=== PATIENT | female | born 1985 | race American Indian/Alaskan Native ===

== ENCOUNTER 2018-04-13 14:54 | Emergency (ER) | payer MEDICAID, MEDICARE ==
[~2018-04-13] VITALS: Ht 152.4 cm; Wt 76.4 kg
[~2018-04-13 14:54] MED LIST: BACI3.5O2 RIGHTEYE; DOCU-28 PO
[2018-04-13 15:49] VITALS: BP 113/60
== END 2018-04-13 16:22 | disposition home or self-care (01) ==
LOC: ER 14:54
DX: R06.00 Dyspnea, unspecified (principal); R53.1 Weakness; R06.02 Shortness of breath
CPT/HCPCS: 71046; 93005; 99284

== ENCOUNTER 2019-01-02 11:11 | Emergency (ER) | payer MEDICAID ==
[~2019-01-02] VITALS: Ht 152.4 cm; Wt 68.2 kg
[2019-01-02] MEDS ORDERED: morphine 4 MG/ML inj SYRINge IV PRN (11:20)
[2019-01-02] MEDS ORDERED: normal saline 1000ML IV soln IVB ONE (11:20)
[2019-01-02] MEDS ORDERED: ondansetron/PF 4mg/2ml inj IV ONE (11:20)
[2019-01-02 11:27] VITALS: BP 148/86
[2019-01-02 11:40] LABS: BASOPHILS # (AUTO) 0.1 X10'3 (0-0.2); EOSINOPHILS # (AUTO) 0.3 X10'3 (0-0.9); EOSINOPHILS % (AUTO) 2.4 % (0-6); HEMATOCRIT 43.5 % (35.0-45.0); HEMOGLOBIN 14.5 g/dl (12.0-16.0); LYMPHOCYTES # (AUTO) 4.2 X10'3 (1.1-4.8); LYMPHOCYTES % (AUTO) 35.8 % (21-51); MEAN CORPUSCULAR HEMOGLOBIN 29.7 PG (27.0-31.0); MEAN CORPUSCULAR HGB CONC 33.4 g/dL (33.0-36.5); MEAN PLATELET VOLUME 7.6 FL (7.4-10.4); MONOCYTES # (AUTO) 0.8 X10'3 (0-0.9); MONOCYTES % (AUTO) 6.5 % (2-12); NEUTROPHILS # (AUTO) 6.4 X10'3 (1.8-7.7); NEUTROPHILS % (AUTO) 54.3 % (42-75); PLATELET COUNT 328 X10'3 (140-440); RED BLOOD COUNT 4.89 X10'6 (4.20-5.60); RED CELL DISTRIBUTION WIDTH 14.1 % (11.5-14.5); WHITE BLOOD COUNT 11.7 X10'3 (4.5-11.0)
[2019-01-02 11:54] LABS: ALANINE AMINOTRANSFERASE 20 U/L (12-78); ALBUMIN 4.2 G/DL (3.4-5.0); ALBUMIN/GLOBULIN RATIO 1.1 (1.1-1.5); ALKALINE PHOSPHATASE 61 IU/L (46-116); ANION GAP 10 (8-16); ASPARTATE AMINO TRANSFERASE 16 U/L (10-37); BILIRUBIN,TOTAL 0.4 MG/DL (0.1-1.0); BLOOD UREA NITROGEN 6 MG/DL (7-18); BUN/CREATININE RATIO 8.6 (6.6-38.0); CALCIUM 9.2 MG/DL (8.5-10.1); CHLORIDE 104 MMOL/L (99-107); GLUCOSE 80 MG/DL (70-104); POTASSIUM 3.6 MMOL/L (3.5-5.1); SODIUM 137 MMOL/L (135-145); TOTAL CARBON DIOXIDE 23.1 MMOL/L (24-32); eGFR > 90 ML/MIN
[2019-01-02 11:57] LABS: LIPASE 149 U/L (73-393); TROPONIN I < 0.04 NG/ML (0.0-0.05)
[2019-01-02] MEDS ORDERED: ketorolac trometh. 30mg/ml inj. IV ONE (12:15)
[2019-01-02 12:28] LABS: URINE HCG NEGATIVE (NEG)
[2019-01-02 12:37] LABS: CLARITY,URINE CLEAR (Clear); COLOR,URINE STRAW (Yellow); GLUCOSE, URINE NEGATIVE (Neg); KETONES,URINE NEGATIVE (Neg); LEUKOCYTE ESTERASE ,URINE NEGATIVE (Neg); NITRITES, URINE NEGATIVE (Neg); OCCULT BLOOD,URINE NEGATIVE (Neg); PH,URINE 6.5 (4.8-8.0); PROTEIN,URINE NEGATIVE (Neg); UA COLLECTION TYPE CLN CATCH MIDSTREAM; UROBILINOGEN,URINE 0.2 E.U/dL (0.2-1.0)
[2019-01-02] MEDS ORDERED: LOPE2CAP PO (13:10)
[2019-01-02] MEDS ORDERED: HYDR-3965 PO (13:10)
[2019-01-02] MEDS ORDERED: ONDA8TAB6 PO (13:10)
== END 2019-01-02 13:28 | disposition home or self-care (01) ==
LOC: ER 11:11
DX: K80.80 Other cholelithiasis without obstruction (principal); R19.7 Diarrhea, unspecified; R11.2 Nausea with vomiting, unspecified
CPT/HCPCS: 36415; 71045; 76700; 80053; 81003; 81025; 83690; 84484; 85025; 93005; 96374; 96375; 99284; J1885; J2270; J2405; J7030; 96361

== ENCOUNTER 2019-01-11 12:53 | Day surgery (SDC) | payer MEDICAID ==
[~2019-01-11] VITALS: Ht 152.4 cm; Wt 67.6 kg
[2019-01-11] VITALS (10 sets, daily range): BP systolic 83–115; BP diastolic 43–71
[~2019-01-11 12:53] MED LIST changes: +HYDR-3965 PO; +LOPE2CAP PO; +ONDA8TAB6 PO
[2019-01-11] MEDS ORDERED: famotidine 20mg tablet PO ONE (13:20)
[2019-01-11] MEDS ORDERED: cefazolin/dext.iso 2gm/100 ML IV ONE (13:20)
[2019-01-11] MEDS ORDERED: ringers solution, lacted 1,000 ML IV SCH ×2 (13:21→15:36)
[2019-01-11] MEDS ORDERED: ONDA8TAB12 PO (13:59)
[2019-01-11] MEDS ORDERED: ceFAZolin 1000mg inj ONE (14:02)
[2019-01-11] MEDS ORDERED: BUPIVAcaine/PF 2.5mg/ml (0.25%) 10ml vial ONE (14:03)
[2019-01-11] MEDS ORDERED: METO25TA6 PO (14:11)
[2019-01-11] MEDS ORDERED: FLUT1AER4 INH (14:11)
[2019-01-11] MEDS ORDERED: SERT50TA10 PO (14:11)
[2019-01-11] MEDS ORDERED: MONT10TA24 PO (14:11)
[2019-01-11] MEDS ORDERED: PRAZ2CAP2 PO (14:11)
[2019-01-11] MEDS ORDERED: ALBU18HF2 INH (14:11)
[2019-01-11] MEDS ORDERED: CETI10TA14 PO (14:11)
[2019-01-11] MEDS ORDERED: albuterol 2.5 MG/3 ML nebule ONE (15:00)
[2019-01-11] MEDS ORDERED: albuterol 2.5 MG/3 ML nebule NEB ONE (15:05)
[2019-01-11] MEDS ORDERED: meperidine/PF 25mg/ml syringe IV PRN ×2 (15:40)
[2019-01-11] MEDS ORDERED: ondansetron/PF 4mg/2ml inj IV PRN (15:40)
[2019-01-11] MEDS ORDERED: proCHLORperazine 10 MG/2 ml inj IV PRN (15:40)
[2019-01-11] MEDS ORDERED: morphine 4 MG/ML inj SYRINge IV PRN ×2 (15:40)
[2019-01-11] MEDS ORDERED: rocuronium 10mg/ml inj IV ONE (16:17)
[2019-01-11] MEDS ORDERED: sevoflurane 250ml liquid IH ONE (16:17)
[2019-01-11] MEDS ORDERED: midazolam 2 mg/2 ml injection ONE (16:20)
[2019-01-11] MEDS ORDERED: fentaNYL/PF 50MCG/1 ML 2ML syringe ONE (16:20)
[2019-01-11] MEDS ORDERED: dexamethasone sod phosphate 4mg/ml inj. ONE (16:59)
[2019-01-11] MEDS ORDERED: ondansetron/PF 4mg/2ml inj ONE (16:59)
[2019-01-11] MEDS ORDERED: LIDOcaine 2% (20mg/ml) 5ml vial ONE (17:00)
[2019-01-11] MEDS ORDERED: ketorolac trometh. 30mg/ml inj. ONE (17:00)
[2019-01-11] MEDS ORDERED: propofol inj 20 ML IV ONE (17:00)
[2019-01-11] MEDS ORDERED: glycopyrrolate 0.2mg/ml inj ONE (17:07)
[2019-01-11] MEDS ORDERED: neostigmine methylsulfate 1 MG/ML 10ml vial ONE (17:07)
--- NOTE | 2019-01-11 17:20 | NUR ---
Received from OR via [facility], accompanied by Anesthesiologist LAMBERT and report given by Anesthesiolgist. PATIENT WITH ABDOMINAL LAP SITES THAT ARE CDI. MEDICATED FOR PAIN SHORTLY AFTER ARRIVAL. VSS 20G PIV IN LEFT UE Addendum: 01/11/19 at 1743 by Kyle Mario RN, RN Amended: Links added.
[2019-01-11] MEDS: meperidine/PF 25mg/ml syringe IV PRN ×2 (17:48→18:21)
--- NOTE | 2019-01-11 18:40 | NUR ---
ALL DC CRITERIA HAS BEEN MET. IV TAKEN OUT WITHOUT COMPLICATIONS. ALL INSTRUCTIONS COVERED AND ALL QUESTIONS ANSWERED. DRESSINGS CDI. OUT VIA WHEELCHAIR TO PERSONAL VEHICLE WHERE PATIENT WAS SECURED IN AND DRIVEN HOME BY FAMILY. Addendum: 01/11/19 at 1842 by Kyle Mario RN, RN Amended: Links added.
== END 2019-01-11 18:40 | disposition home or self-care (01) ==
LOC: PAS 12:53
PROVIDERS: ATTEND Surgery
DX: K81.9 Cholecystitis, unspecified (principal); F17.210 Nicotine dependence, cigarettes, uncomplicated; M19.90 Unspecified osteoarthritis, unspecified site; F41.9 Anxiety disorder, unspecified; J45.909 Unspecified asthma, uncomplicated; Z80.0 Family history of malignant neoplasm of digestive organs; Z98.890 Other specified postprocedural states; Z79.899 Other long term (current) drug therapy; Z80.8 Family history of malignant neoplasm of other organs or systems
CPT/HCPCS: 47562; 82948; 94640; 94760; J0690; J1100; J1885; J2001; J2175; J2250; J2405; J2704; J2710; J3010; J3490; J7030; J7120; A7000

== ENCOUNTER 2019-04-14 11:35 | Emergency (ER) | payer MEDICAID ==
[~2019-04-14] VITALS: Ht 152.4 cm; Wt 67.0 kg
[~2019-04-14 11:35] MED LIST changes: +ALBU18HF2 INH; -BACI3.5O2 RIGHTEYE; +CETI10TA14 PO; +FLUT1AER4 INH; -HYDR-3965 PO; +METO25TA6 PO; +MONT10TA24 PO; +PRAZ2CAP2 PO; +SERT50TA10 PO
[2019-04-14] MEDS ORDERED: morphine 4 MG/ML inj SYRINge IV ONE (13:50)
[2019-04-14] MEDS ORDERED: probenecid 500mg tablet PO ONE (13:50)
[2019-04-14] MEDS ORDERED: ondansetron/PF 4mg/2ml inj IV ONE (13:50)
[2019-04-14] MEDS ORDERED: LORazepam 2 mg/ml vial IV ONE (13:50)
[2019-04-14] MEDS ORDERED: AMOX-580 PO (13:59)
[2019-04-14] MEDS ORDERED: ampicillin/sulbac 3gm/NS 100ml 100 ML IV SCH (14:00)
[2019-04-14 16:50] VITALS: BP 121/46
[2019-04-15] MEDS ORDERED: ONDA4TAB6 PO (14:33)
== END 2019-04-14 16:53 | disposition home or self-care (01) ==
LOC: ER 11:35
DX: S61.251A Open bite of left index finger without damage to nail, initial encounter (principal); Z79.899 Other long term (current) drug therapy; W55.01XA Bitten by cat, initial encounter; Y93.89 Activity, other specified; Y92.89 Other specified places as the place of occurrence of the external cause; Y99.9 Unspecified external cause status
CPT/HCPCS: 96365; 96375; 99283; J2060; J2270; J2405; J0295

== ENCOUNTER 2019-04-15 13:58 | Emergency (ER) | payer MEDICAID ==
[~2019-04-15] VITALS: Ht 152.4 cm; Wt 67.3 kg
[~2019-04-15 13:58] MED LIST changes: +AMOX-580 PO
[2019-04-15] MEDS ORDERED: ONDA4TAB6 PO (14:33)
[2019-04-15 14:47] VITALS: BP 106/54
== END 2019-04-15 14:48 | disposition home or self-care (01) ==
LOC: ER 13:59
DX: L03.012 Cellulitis of left finger (principal); Z79.899 Other long term (current) drug therapy
CPT/HCPCS: 99283

== ENCOUNTER 2022-10-06 08:18 | Day surgery (SDC) | payer MEDICARE, MEDICAID ==
[~2022-10-06] VITALS: Ht 356.7 cm; Wt 80.5 kg
[~2022-10-06 08:18] MED LIST changes: -AMOX-580 PO; +LOP25T PO; -METO25TA6 PO; +MONT-40 PO; -MONT10TA24 PO; +ONDA4TAB6 PO; +SERT-433 PO; -SERT50TA10 PO
[2022-10-06 08:30] VITALS: BP 118/70
[2022-10-06] MEDS ORDERED: diphenhydrAMINE 50 mg/ml inj ONE (08:38)
[2022-10-06] MEDS ORDERED: fentaNYL/PF 50MCG/1 ML 2ML syringe ONE (08:38)
[2022-10-06] MEDS ORDERED: LIDOcaine Viscous 15ml cup ONE (08:38)
[2022-10-06] MEDS ORDERED: MIDAZolam 1 MG/ML 5ML VIAL ONE (08:38)
[2022-10-06] MEDS ORDERED: HYDR-3972 PO (09:00)
[2022-10-06 10:10] VITALS: BP 112/73
[2022-10-06 10:20] VITALS: BP 109/55
[2022-10-06 10:30] VITALS: BP 103/69
== END 2022-10-06 10:55 | disposition home or self-care (01) ==
LOC: GI LAB 08:18
PROVIDERS: ATTEND Internal Medicine Gastroenterology
DX: R10.33 Periumbilical pain (principal); R10.13 Epigastric pain; K31.89 Other diseases of stomach and duodenum; K21.9 Gastro-esophageal reflux disease without esophagitis; F17.210 Nicotine dependence, cigarettes, uncomplicated; J45.909 Unspecified asthma, uncomplicated; Z79.899 Other long term (current) drug therapy
CPT/HCPCS: 43239; 88305; 88313; 88342; G0500; J2250; J3010; J7030; Z7512; 99152; A4620; J1200

== ENCOUNTER 2024-05-02 08:24 | Emergency (ER) | payer MEDICARE, MEDICAID ==
[~2024-05-02] VITALS: Ht 162.6 cm; Wt 79.0 kg
[~2024-05-02 08:24] MED LIST changes: -FLUT1AER4 INH; +HYDR-3972 PO; -ONDA8TAB6 PO
[2024-05-02 08:25] VITALS: BP 136/56; PULSE 87; TEMP 97.4; O2SAT 98
[2024-05-02 10:13] VITALS: RESP 20
== END 2024-05-02 10:16 | disposition home or self-care (01) ==
LOC: ER 08:24
DX: H60.91 Unspecified otitis externa, right ear (principal); Z79.899 Other long term (current) drug therapy; Z79.1 Long term (current) use of non-steroidal anti-inflammatories (NSAID)
CPT/HCPCS: 99282